=== PATIENT | female | born 1960 | race African-American/Black ===

== ENCOUNTER → 2016-10-10 | Day surgery (SDC) | payer MEDICARE ==
[~2016-10-10] MED LIST: ALBUTEROL; ASPIRIN EC81 M1 PO; ATIVAN0.5 M1 PO; BACITRACIN28.4 G2; CLARITIN10 M3 PO; DESYREL150 M1 PO; DULOXETINE HCL60 MG PO; ESTRACE; FLUCONAZOLE150 M1 PO; FOLIC ACID1 MG PO; LANTUS100 UNITS/; LORTAB 10-3251 EACH PO; MELOXICAM7.5 MG; METOPROLOL SUCC25 MG PO; METOPROLOL TAR25 MG PO; MULTIPLE VITAM1 EAC1; NATEGLINIDE120 MG PO; NEURONTIN800 MG; NIACIN PO; OMEPRAZOLE40 M1 PO; PRINIVIL20 M1 PO; SEROQUEL25 MG PO; TESSALON PERLE100 M1 PO; TIZANIDINE HCL4 M1 PO; ZOCOR80 MG PO; [UNRECOGNIZED DRUG - OTHER]
--- NOTE | ~2016-10-10 | OR ---
Unit #: [id number] #: [id number] Patient: RAMIRO WOODARD [id number] [address] [address] [id number] MR#: [id number] NAME: RAMIRO WOODARD ROOM: Date of Procedure: 10/10/2016 Admission Date: 10/10/2016 Surgeon: Toby Ayers M.D. : 1960 Attending Physician: Toby Ayers M.D. OPERATIVE REPORT PROCEDURE PERFORMED Colonoscopy with snare polypectomy, multiple. INDICATIONS FOR PROCEDURE A 56-year-old female with average risk for colorectal cancer. MEDICATIONS Monitored anesthesia. POSTOPERATIVE FINDINGS 1. Multiple polyps, one in transverse colon, 2 in sigmoid colon, 8 in rectum, varying in size from 4 to 8 mm were snared and sent for histopathology. 2. Rest of the colon exam to cecum was normal. 3. Internal hemorrhoids. PLAN Follow up on pathology report. Repeat colonoscopy in 3 years. DESCRIPTION OF PROCEDURE The patient was explained of the procedure, risks, and benefits along with risks and benefits of anesthesia. She was brought to the endoscopy room. Propofol anesthesia was given. Rectal exam was done, which was normal. Colonoscope was lubricated, passed up the rectum, advanced under direct vision all the way to the cecum. Cecum was identified by ileocecal valve and appendiceal orifice. Multiple polyps were seen as described and were snared and sent for histopathology. I retroflexed in the rectum. Small hemorrhoids were seen. Gently, the scope was pulled out. She tolerated it well. No major complications were seen. Dictated by... Arya Perez/yury TD: 10/11/2016 02:23 JOB #: [id number] Unit #: [id number] #: [id number] Patient: RAMIRO WOODARD OPERATIVE REPORT Page 1 of 1 X Toby Ayers MD X PROCEDURE OPERATIVE NOTE
== END | disposition home or self-care (01) ==
LOC: COPS 09-19 12:30
DX: Z12.11 Encounter for screening for malignant neoplasm of colon (principal); D12.3 Benign neoplasm of transverse colon; K63.5 Polyp of colon; K64.8 Other hemorrhoids; J43.9 Emphysema, unspecified; E11.9 Type 2 diabetes mellitus without complications; I10 Essential (primary) hypertension; K21.9 Gastro-esophageal reflux disease without esophagitis; F17.210 Nicotine dependence, cigarettes, uncomplicated; Z87.440 Personal history of urinary (tract) infections; Z90.710 Acquired absence of both cervix and uterus; Z88.0 Allergy status to penicillin; Z88.6 Allergy status to analgesic agent; Z79.4 Long term (current) use of insulin; Z79.899 Other long term (current) drug therapy
CPT/HCPCS: 82947; 88305; J2250